=== PATIENT | female | born 1960 | race African-American/Black ===

== ENCOUNTER → 2016-08-03 | Outpatient (CLI) | payer MEDICARE, OTHER ==
[~2016-08-03] MED LIST: ACETAMINOPHEN PO; AMITRIPTYLINE H25 MG PO; AMITRYPTYLINE PO; AMLODIPINE BESY10 MG PO; ASPIRIN81 M1 PO; ASPIRIN81 M2 PO; BACTRIM 400-801 TA1 PO; CALCIUM + D 6001 TA1 PO; CALCIUM 600 +1 EA10 PO; COLACE PO; COLACE50 MG PO; DIFLUCAN PO; GARLIC1 CAP PO; GARLIC1 TAB PO; LASIX PO; LEVAQUIN PO; LIPITOR20 MG PO; LISINOPRIL PO; LOPRESSOR PO; METOPROLOL TAR100 MG PO; MINOXIDIL PO; MINOXIDIL2.5 MG PO; MULTI VITAMIN1 EACH PO; MYFORTIC180 MG; MYFORTIC180 MG PO; NILSTAT PO; NORVASC PO; PATIENT'S PHARMACY; PRILOSEC20 M1 PO; PROCRIT SUBQ; PROGRAF1 MG PO; RENAGEL PO; RENAGEL403 MG PO; RENVELA800 MG PO; SOD BICARBONATE PO; TOPROL XL100 MG PO; VICODIN 5/1 TAB 5/50 PO; VITAMIN E400 UNI2 PO; ZEMPLAR PO; ZOCOR PO; ZOLOFT PO; ZOLOFT50 MG PO
--- NOTE | ~2016-08-03 | US135 ---
[facility] A Service of [facility] & [facility] RADIOLOGY TEXT RESULTS PATIENT: ALANNA CARRIZALES LOCATION: CNIV : 60 UNIT #: [id number] AGE: [address]: Delon Beltre MD SEX: F ORDER DR: [id number] [facility] [address] [place], [place] [address] [id number] O MR#: [id number] Acc #: [id number] NAME: ALANNA CARRIZALES : 1960 SEX: F STUDY DATE/TIME: 08/03/2016 9:59 UNIT: CNIV ROOM: STUDY DESCRIPTION: US U/L Ext Art Study Comp West Attending Physician: Delon Beltre M.D. Referring Physician: Delon Beltre M.D. Ordering Physician: Delon Beltre M.D. Primary Care Physician: Cecile Cardenas M.D. MEDICAL IMAGING REPORT This report is preliminary unless electronic signature is present EXAM LORENA with segmental pressure HISTORY Peripheral vascular disease. FINDINGS The right brachial artery pressure is 129, right upper thigh pressure is 200, lower thigh 141, calf 140. Right dorsalis pedis pressure 119 with ankle brachial index 0.92. The right posterior tibial pressure is 121 with ankle brachial index 0.94. The right digital pressure is 83 with toe index 0.64. The left brachial artery pressure could not be taken because of the presence of an arm graft. The upper thigh pressure could not be obtained due to the patient's pain. The left lower thigh pressure is 150, calf 128. Left dorsalis pedis pressure is 132, with an ankle brachial index 1.20. Left posterior pressure 125, with an ankle brachial index 0.97. Left toe pressure was not taken on the great toe because it is status post amputation. The waveforms of the right posterior tibial and dorsalis pedis waveforms are biphasic. The left posterior tibial and dorsalis pedis waveforms are also biphasic. Pulse volume recordings of the upper thigh pressures do appear somewhat irregular in comparison to the left. The rest of the PVRs demonstrate sharp upstroke and systolic peaks at the knee level, calf level, and ankles. IMPRESSION 1. The right LORENA 0.94, with no evidence of arterial insufficiency. [facility]. [facility] A Service of [facility] & [facility] RADIOLOGY TEXT RESULTS PATIENT: ALANNA CARRIZALES LOCATION: CNIV : 60 UNIT #: [id number] AGE: [address]: Delon Beltre MD SEX: F ORDER DR: 2. The left LORENA 1.02, with no evidence of arterial insufficiency. 1. Dictated by... Matthew Nunez M.D. THIS IS AN ELECTRONICALLY VERIFIED REPORT Matthew Nunez M.D. at 08/04/2016 8:13 AM Sallie TD: 08/03/2016 12:17 JOB #: [id number] MEDICAL IMAGING REPORT Page 1 of 1 COPY
--- NOTE | ~2016-08-03 | US83 ---
[facility] A Service of [facility] & [facility] RADIOLOGY TEXT RESULTS PATIENT: ALANNA CARRIZALES LOCATION: CNIV : 60 UNIT #: [id number] AGE: [address]: Delon Beltre MD SEX: F ORDER DR: [id number] [facility] [address] [place], [place] [address] [id number] O MR#: [id number] Acc #: [id number] NAME: ALANNA CARRIZALES : 1960 SEX: F STUDY DATE/TIME: 08/03/2016 11:54 UNIT: CNIV ROOM: STUDY DESCRIPTION: US LE [employer] Attending Physician: Delon Beltre M.D. Referring Physician: Delon Beltre M.D. Ordering Physician: Delon Beltre M.D. Primary Care Physician: Cecile Cardenas M.D. MEDICAL IMAGING REPORT This report is preliminary unless electronic signature is present EXAM Left lower extremity arterial duplex, 08/03/2016. HISTORY Peripheral vascular disease. FINDINGS The left common femoral artery has triphasic flow with velocity of 79 cm/sec. The left superficial femoral artery proximal has triphasic flow with a velocity of 114 cm/sec, profunda artery triphasic flow with a velocity of 46 cm/sec. The left superficial femoral artery at the mid portion has velocity of 92 cm/sec, with biphasic flow, in its distal aspect 39 cm/sec, with monophasic flow. The left popliteal artery has biphasic flow with velocity of 68 cm/sec at its distal aspect. Tibioperoneal trunk has biphasic flow with velocity of 71 cm/sec, posterior tibial artery biphasic flow with 38 cm/sec. IMPRESSION There appears to be patent flow seen throughout the right common femoral artery, profunda, and superficial femoral artery, with popliteal artery and tibioperoneal trunk runoff. There is no evidence of high-grade stenosis by duplex criteria. Dictated by... Matthew Nunez M.D. THIS IS AN ELECTRONICALLY VERIFIED REPORT Matthew Nunez M.D. at 08/04/2016 8:20 AM DEMETRIUS/justine MCKEON: 08/03/2016 12:17 [facility] A Service of [facility] & [facility] RADIOLOGY TEXT RESULTS PATIENT: ALANNA CARRIZALES LOCATION: CNIV : 60 UNIT #: [id number] AGE: [address]: Delon Beltre MD SEX: F ORDER DR: TD: 08/03/2016 13:22 JOB #: [id number] MEDICAL IMAGING REPORT Page 1 of 1 COPY
== END | disposition home or self-care (01) ==
LOC: CNIV 09:46
DX: I73.9 Peripheral vascular disease, unspecified (principal)
CPT/HCPCS: 93923; 93926

== ENCOUNTER 2016-09-08 08:49 | Emergency (ER) | payer MEDICARE, OTHER | END 2016-09-08 09:39 | disposition home or self-care (01) | LOC: CFTX 08:49 → CED 08:49 → CFTX 09:13 | DX: L01.00 Impetigo, unspecified (principal); I10 Essential (primary) hypertension; Z90.710 Acquired absence of both cervix and uterus; Z89.422 Acquired absence of other left toe(s); Z94.0 Kidney transplant status; Z79.899 Other long term (current) drug therapy; Z88.1 Allergy status to other antibiotic agents | CPT/HCPCS: 99282 ==

== ENCOUNTER → 2016-09-09 | Outpatient (CLI) | payer MEDICARE, OTHER ==
--- NOTE | ~2016-09-09 | MY11 ---
[facility] A Service of [facility] RADIOLOGY TEXT RESULTS PATIENT: ALANNA CARRIZALES LOCATION: [facility] : 60 UNIT #: [id number] AGE: [address]: UDAY RASCON MD SEX: F ORDER DR: [id number] [place] [id number] [facility] [place], [place] [address] [id number] O MR#: [id number] Acc #: [id number] NAME: ALANNA CARRIZALES : 1960 SEX: F STUDY DATE/TIME: 09/09/2016 7:52 UNIT: [facility] ROOM: STUDY DESCRIPTION: MY Mammogram Screening Dig West Attending Physician: Uday Rascon M.D. Referring Physician: Uday Rascon M.D. Ordering Physician: Uday Rascon M.D. Primary Care Physician: Uday Rascon M.D. MEDICAL IMAGING REPORT This report is preliminary unless electronic signature is present EXAM Digital screening mammogram 09/09/2016 HISTORY 56-year-old woman. Positive family history. Annual screen. COMPARISON Mammograms date to 06/04/2005 with most recent screening comparison 09/09/2015. FINDINGS Digital imaging of each breast was completed utilizing screening protocol. Review includes FDA-approved CAD device. Breast parenchyma is heterogeneously dense with mild parenchymal dominance noted in the right breast. Numerous calcifications are present in each breast, dominant in the left breast. This includes a cluster of somewhat coarse calcifications stable in the upper anterior third left breast. I see no suspicious mass characteristics. There are no interval-occurring suspicious microcalcifications and no architectural deformity. IMPRESSION Stable benign mammogram. Annual screening recommended. Patient's over the age of 40 are entered into a reminder system with target due date for the next mammogram. BIRADS: 2 Benign findings Dictated by... Diego Colby M.D. THIS IS AN ELECTRONICALLY VERIFIED REPORT [facility] A Service of [facility] RADIOLOGY TEXT RESULTS PATIENT: ALANNA CARRIZALES LOCATION: [facility] : 60 UNIT #: [id number] AGE: [address]: UDAY RASCON MD SEX: F ORDER DR: Diego Colby M.D. at 09/09/2016 9:32 AM LIZTET/aliyah TD: 09/09/2016 09:22 JOB #: [id number] MEDICAL IMAGING REPORT Page 1 of 1 COPY
== END | disposition home or self-care (01) ==
LOC: CWCC 07:36
DX: Z12.31 Encounter for screening mammogram for malignant neoplasm of breast (principal); Z80.3 Family history of malignant neoplasm of breast
CPT/HCPCS: G0202

== ENCOUNTER 2016-09-24 11:32 | Emergency (ER) | payer MEDICARE, OTHER ==
--- NOTE | ~2016-09-24 | CT71 ---
[facility] A Service of [facility] RADIOLOGY TEXT RESULTS PATIENT: ALANNA CARRIZALES LOCATION: [facility] : 60 UNIT #: [id number] AGE: [address]: Ayanna Talbert MD SEX: F ORDER DR: [id number] [facility] [address] [place], [place] [address] [id number] E MR#: [id number] Acc #: [id number] NAME: ALANNA CARRIZALES : 1960 SEX: F STUDY DATE/TIME: 09/24/2016 13:24 UNIT: [facility] ROOM: STUDY DESCRIPTION: CT Head Wo Contrast Attending Physician: Ayanna Talbert M.D. Ordering Physician: Ayanna Talbert M.D. Primary Care Physician: Cecile Cardenas M.D. MEDICAL IMAGING REPORT This report is preliminary unless electronic signature is present EXAM CT of the head without contrast INDICATION Headache for 1 week. This patient has a history of kidney transplant. TECHNIQUE Axial CT images were obtained from the vertex of the skull through the skull base, and intravenous contrast material was administered. FINDINGS No acute intracranial hemorrhage is identified. The patient is noted to have areas of encephalomalacia within the left parietal lobe and right frontal lobe with associated dystrophic calcifications. Additional calcification is seen within the left basal ganglia. There is no midline shift or mass effect. Ventricles are normal in size. Visualized paranasal sinuses and mastoid air cells appear clear. IMPRESSION 1. No acute intracranial process identified. Specifically, there is no evidence of acute hemorrhage, mass lesion, or acute infarct. 2. Areas of encephalomalacia within the right frontal lobe and left parietal lobe with associated dystrophic calcification. Dictated by... Patricia Barger M.D. THIS IS AN ELECTRONICALLY VERIFIED REPORT Patricia Barger M.D. at 09/24/2016 4:22 PM AFF/js TD: 09/24/2016 15:35 [facility] A Service of [facility] RADIOLOGY TEXT RESULTS PATIENT: ALANNA CARRIZALES [facility] [id number] : 60 UNIT #: [id number] AGE: [address]: Ayanna Talbert MD SEX: F ORDER DR: JOB #: [id number] MEDICAL IMAGING REPORT Page 1 of 1 COPY
[2016-09-24 12:24] LABS: URINE SOURCE CLEAN CATCH
[2016-09-24 12:38] LABS: URINE APPEARANCE CLEAR; URINE BILIRUBIN NEG (NEG); URINE BLOOD TRACE (NEG); URINE COLOR YELLOW; URINE GLUCOSE NEG (NEG); URINE KETONE NEG (NEG); URINE LEUKOCYTE ESTERASE 1+ (NEG); URINE NITRATE NEG (NEG); URINE PROTEIN NEG (NEG); URINE SPECIFIC GRAVITY 1.016 (1.003-1.035)
[2016-09-24 12:42] LABS: URINE BACTERIA AUWI NEG (NEGATIVE); URINE SQUAMOUS EPITHELIAL CELL OCC /[HPF]
[2016-09-24 12:51] LABS: CULTURE INDICATED? NO
[2016-09-24 14:53] LABS: BASOPHIL# 0.1 X10e3 (0-0.3); BASOPHIL% 0.7 % (0-2.5); EOSINOPHIL% 0.2 % (0.0-7.0); HEMATOCRIT 40.5 % (35.0-45.0); HEMOGLOBIN 13.2 gm/dL (12.0-16.0); LYMPHOCYTE# 1.8 X10e3 (1.0-3.5); MEAN CELL VOLUME 88.7 FL (83-96); MEAN CORPUSCULAR HEMOGLOBIN 28.8 PG (28-34); MEAN CORPUSCULAR HGB CONC 32.5 g/dL (30-36); MEAN PLATELET VOLUME 10.2 FL (6.5-11.5); MONOCYTE# 0.8 X10e3 (0-1.0); MONOCYTE% 9.4 % (3.0-12.0); NEUTROPHIL# 6.2 X10e3 (1.5-7.1); NEUTROPHIL% 69.7 % (40-75); PLATELET COUNT 174 X10e3 (140-420); RED BLOOD COUNT 4.56 X10e (3.90-5.30); RED CELL DISTRIBUTION WIDTH 13.8 % (11.0-15.5); WHITE BLOOD COUNT 8.9 X10e3 (4.0-10.5)
[2016-09-24 14:54] LABS: DIFF IND NO
[2016-09-24 15:06] LABS: ALBUMIN SERUM 4.3 g/dL (3.5-5.0); BILIRUBIN, DIRECT 0.1 mg/dL (0.0-0.2); BILIRUBIN,INDIRECT 0.5 mg/dL (0.0-0.9); BILIRUBIN,TOTAL 0.6 mg/dL (0.2-2.0); BUN/CREATININE RATIO 15.55; CALCIUM SERUM 9.1 mg/dL (8.4-10.2); CREATININE SERUM 0.9 mg/dL (0.6-1.4); GLOM FILT RATE Estimated 82.9 mL/min (>60); POTASSIUM 4.5 mmol/L (3.5-5.1); PROTEIN TOTAL SERUM 7.9 g/dL (6.0-8.3)
== END 2016-09-24 17:25 | disposition home or self-care (01) ==
LOC: CED 11:32
DX: R11.2 Nausea with vomiting, unspecified (principal); R51 Headache; R19.7 Diarrhea, unspecified; I10 Essential (primary) hypertension; I25.10 Atherosclerotic heart disease of native coronary artery without angina pectoris; Z86.718 Personal history of other venous thrombosis and embolism; Z90.710 Acquired absence of both cervix and uterus; Z88.1 Allergy status to other antibiotic agents; Z88.8 Allergy status to other drugs, medicaments and biological substances
CPT/HCPCS: 36415; 70450; 80048; 80076; 81003; 83690; 85025; 96361; 96374; 96375; 99284; J1100; J1200; J1885; J2765

== ENCOUNTER 2016-10-29 12:04 | Emergency (ER) | payer MEDICARE, OTHER ==
[2016-10-29 13:11] LABS: BASOPHIL% 0.5 % (0-2.5); EOSINOPHIL% 0.2 % (0.0-7.0); HEMATOCRIT 38.3 % (35.0-45.0); HEMOGLOBIN 12.6 gm/dL (12.0-16.0); LYMPHOCYTE# 0.7 X10e3 (1.0-3.5); LYMPHOCYTE% 8.6 % (17.0-45.0); MEAN CELL VOLUME 87.9 FL (83-96); MEAN PLATELET VOLUME 10.2 FL (6.5-11.5); MONOCYTE# 0.5 X10e3 (0-1.0); MONOCYTE% 6.7 % (3.0-12.0); NEUTROPHIL# 6.6 X10e3 (1.5-7.1); PLATELET COUNT 142 X10e3 (140-420); RED BLOOD COUNT 4.35 X10e (3.90-5.30); RED CELL DISTRIBUTION WIDTH 13.8 % (11.0-15.5); WHITE BLOOD COUNT 7.8 X10e3 (4.0-10.5)
[2016-10-29 13:12] LABS: DIFF IND NO
[2016-10-29 13:24] LABS: PARTIAL THROMBOPLASTIN TIME 28.2 SECONDS (23.5-31.3)
[2016-10-29 13:36] LABS: URINE SOURCE CLEAN CATCH
[2016-10-29 13:40] LABS: ALBUMIN SERUM 4.1 g/dL (3.5-5.0); BILIRUBIN, DIRECT 0.1 mg/dL (0.0-0.2); BILIRUBIN,INDIRECT 0.5 mg/dL (0.0-0.9); BILIRUBIN,TOTAL 0.6 mg/dL (0.2-2.0); CALCIUM SERUM 8.9 mg/dL (8.4-10.2); POTASSIUM 4.5 mmol/L (3.5-5.1); PROTEIN TOTAL SERUM 7.3 g/dL (6.0-8.3)
[2016-10-29 13:43] LABS: URINE APPEARANCE CLEAR; URINE BILIRUBIN NEG (NEG); URINE BLOOD NEG (NEG); URINE COLOR YELLOW; URINE GLUCOSE NEG (NEG); URINE KETONE NEG (NEG); URINE LEUKOCYTE ESTERASE TRACE (NEG); URINE NITRATE NEG (NEG); URINE PH 5.5 (5-8); URINE PROTEIN TRACE (NEG); URINE SPECIFIC GRAVITY 1.012 (1.003-1.035); URINE UROBILINOGEN 0.2 MG/DL (NEG)
[2016-10-29 13:46] LABS: URINE BACTERIA AUWI NEG (NEGATIVE); URINE SQUAMOUS EPITHELIAL CELL FEW /[HPF]; UWBCS1 AUWI 0-2 (0-5)
[2016-10-29 13:49] LABS: CULTURE INDICATED? NO
== END 2016-10-29 16:23 | disposition home or self-care (01) ==
LOC: CED 12:04
PROVIDERS: Emergency Medicine
DX: K62.5 Hemorrhage of anus and rectum (principal); I10 Essential (primary) hypertension; Z88.1 Allergy status to other antibiotic agents
CPT/HCPCS: 36415; 80048; 80076; 81003; 85025; 85610; 85730; 86850; 86900; 86901; 99283

== ENCOUNTER → 2016-10-30 | Outpatient (CLI) | payer MEDICARE, OTHER ==
[2016-10-30 11:56] LABS: HEMATOCRIT 38.1 % (35.0-45.0); HEMOGLOBIN 12.3 gm/dL (12.0-16.0); MEAN CELL VOLUME 88.8 FL (83-96); MEAN CORPUSCULAR HEMOGLOBIN 28.7 PG (28-34); MEAN CORPUSCULAR HGB CONC 32.3 g/dL (30-36); RED BLOOD COUNT 4.29 X10e (3.90-5.30); RED CELL DISTRIBUTION WIDTH 13.8 % (11.0-15.5); WHITE BLOOD COUNT 4.5 X10e3 (4.0-10.5)
== END | disposition home or self-care (01) ==
LOC: CLAB 10:57
PROVIDERS: Emergency Medicine
DX: K62.5 Hemorrhage of anus and rectum (principal)
CPT/HCPCS: 36415; 85027

== ENCOUNTER 2016-12-17 08:55 | Emergency (ER) | payer MEDICARE, OTHER ==
[~2016-12-17] VITALS: Ht 172.7 cm; Wt 90.7 kg
--- NOTE | ~2016-12-17 | CT71 ---
[facility] A Service of [facility] & [facility] RADIOLOGY TEXT RESULTS PATIENT: ALANNA CARRIZALES LOCATION: [facility] : 60 UNIT #: [id number] AGE: [address]: Rodriguez Thompson DO SEX: F ORDER DR: [id number] [facility] [address] [place], [place] [address] [id number] E MR#: [id number] Acc #: [id number] NAME: ALANNA CARRIZALES : 1960 SEX: F STUDY DATE/TIME: 12/17/2016 11:23 UNIT: [facility] ROOM: STUDY DESCRIPTION: CT Head Wo Contrast Attending Physician: Rodriguez Thompson D.O. Ordering Physician: Rodriguez Thompson D.O. Primary Care Physician: Cecile Cardenas M.D. MEDICAL IMAGING REPORT This report is preliminary unless electronic signature is present EXAM CT of the head, 12/17/2016. HISTORY Pain. Headache in frontal lobe. Diffuse abdominal pain, headache, abdomen pain for [address] head performed skull base through vertex without intravenous contrast. This CT exam was performed with one or more of the following radiation dose reduction techniques: automatic exposure control, adjustment of mA and/or kV according to patient size, and iterative reconstruction. COMPARISON 09/24/2016. FINDINGS Multiple images degraded by streak artifact. The brainstem is unremarkable. Cerebellum and cerebral hemispheres show normal guzman matter - white matter differentiation. No hemorrhage. There is no evidence of acute cortical ischemia. The midline structures are nondisplaced. There is a small chronic lacunar infarct in the superior body of the right caudate nucleus. There is a small dystrophic calcification, stable, in the left caudate nucleus head. There are areas of stable encephalomalacia in the right frontal lobe, left temporal parietal junction region anteriorly, and left parietal lobe posteriorly and superiorly. These are unchanged from prior examination and could reflect sequelae of prior vascular injury with dystrophic calcification or perhaps sequelae of prior trauma. Outside of these areas, the ventricles, cisterns and sulci are normal in size and contour. There is no intra or extraaxial mass effect. There are cavernous carotid arterial calcifications. Intraorbital soft tissues unremarkable. Visualized paranasal sinuses and mastoid air cells are clear. No fracture. [facility]. [facility] A Service of [facility] & [facility] RADIOLOGY TEXT RESULTS PATIENT: ALAN[facility] CARRIZALES [id number] 60 UNIT #: [id number] AGE: [address]: Rodriguez Thompson DO SEX: F ORDER DR: IMPRESSION 1. No acute abnormalities seen in the brain. No change in appearance compared to August 2016. If patient has ongoing neurologic symptoms, consider follow up imaging. 2. Areas of encephalomalacic change with associated dystrophic calcification in the right frontal lobe, left temporal parietal junction region and left parietal lobe are unchanged from August 2016. These may reflect sequelae of remote vascular insult and dystrophic calcification or perhaps sequelae of remote trauma with associated dystrophic calcification. 3. Tiny of lacunar infarct of superior right caudate nucleus. Unchanged. Punctate chronic calcification left caudate nucleus head unchanged. 4. Cavernous carotid arterial calcifications. Dictated by... Nilay Cabral M.D. THIS IS AN ELECTRONICALLY VERIFIED REPORT Nilay Cabral M.D. at 12/19/2016 10:01 PM EVELIA/dewey TD: 12/17/2016 16:40 JOB #: [id number] MEDICAL IMAGING REPORT Page 1 of 1 COPY
--- NOTE | ~2016-12-17 | CR72 ---
[facility] A Service of [facility] & [facility] RADIOLOGY TEXT RESULTS PATIENT: ALANNA CARRIZALES LOCATION: [facility] : 60 UNIT #: [id number] AGE: [address]: Rodriguez Thompson DO SEX: F ORDER DR: [id number] [facility] [address] [place], [place] [address] [id number] E MR#: [id number] Acc #: [id number] NAME: ALANNA CARRIZALES : 1960 SEX: F STUDY DATE/TIME: 12/17/2016 14:21 UNIT: [facility] ROOM: STUDY DESCRIPTION: CR Chest Single View Portable Attending Physician: Rodriguez Thompson D.O. Ordering Physician: Rodriguez Thompson D.O. Primary Care Physician: Cecile Cardenas M.D. MEDICAL IMAGING REPORT This report is preliminary unless electronic signature is present EXAM Portable chest HISTORY Headache and fever for the past 2 days. COMPARISON 06/12/2015 TECHNIQUE Single AP view of the chest was obtained. FINDINGS A single AP portable view of the chest shows both lungs to be clear. The heart is normal in size. The mediastinal contour is normal. No significant bone abnormalities are seen. IMPRESSION Normal portable chest. Dictated by... Alfred Chacon M.D. THIS IS AN ELECTRONICALLY VERIFIED REPORT Alfred Chacon M.D. at 12/22/2016 2:13 PM RLF/med TD: 12/17/2016 22:28 JOB #: [id number] MEDICAL IMAGING REPORT Page 1 of 1 COPY
--- NOTE | ~2016-12-17 | CT4 ---
[facility] A Service of [facility] & [facility] RADIOLOGY TEXT RESULTS PATIENT: ALANNA CARRIZALES LOCATION: [facility] : 60 UNIT #: [id number] AGE: [address]: Rodriguez Thompson DO SEX: F ORDER DR: [id number] [facility] [address] [place], [place] [address] [id number] E MR#: [id number] Acc #: [id number] NAME: ALANNA CARRIZALES : 1960 SEX: F STUDY DATE/TIME: 12/17/2016 11:29 UNIT: [facility] ROOM: STUDY DESCRIPTION: CT Abd and Pelv Wo Cont Attending Physician: Rodriguez Thompson D.O. Ordering Physician: Rodriguez Thompson D.O. Primary Care Physician: Cecile Cardenas M.D. MEDICAL IMAGING REPORT This report is preliminary unless electronic signature is present EXAM CT abdomen and pelvis, 12/17/2016. HISTORY Pain. Headache, abdomen pain 3 days. Diffuse abdominal pain, headache and frontal lobe. TECHNIQUE CT abdomen and pelvis performed without administration of oral or intravenous contrast. This CT exam was performed with one or more of the following radiation dose reduction techniques: automatic exposure control, adjustment of mA and/or kV according to patient size, and iterative reconstruction. COMPARISON 10/11/2014. FINDINGS There are some linear scarring or atelectasis at the lung bases. The inferior heart and pericardium unremarkable. The liver, gallbladder, spleen, pancreas unremarkable. Adrenal glands unremarkable. I believe the patient retains markedly atrophic redding left kidney. There is also marked atrophy of the redding right kidney, though less pronounced than on the left. In the upper pole of the redding right kidney, there is an approximately at 1.6-1.9 cm cyst. There are nonobstructing right renal calculi. No redding right renal inflammatory change or hydronephrosis. The patient has a right iliac fossa renal transplant. The renal transplant shows mild pyelocaliectasis without ureteral dilatation. This appears slightly more pronounced than on the prior examination. No obstructing process is seen. There is inflammatory haziness and stranding in the perinephric fat and in the renal pelvic fat. Findings may reflect infectious or inflammatory process involving the renal transplant. Correlate with urinalysis for any indications of urinary tract infection. [facility]. [facility] A Service of [facility] & [facility] RADIOLOGY TEXT RESULTS PATIENT: ALANNA CARRIZALES LOCATION: [facility] : 60 UNIT #: [id number] AGE: [address]: Rodriguez Thompson DO SEX: F ORDER DR: CT PELVIS: Linear density in the cutaneous and subcutaneous tissues of the left groin. New compared to prior examination. Configuration suggests interval operative intervention. Please correlate clinically. Small, not pathologically enlarged bilateral inguinal lymph nodes. Urinary bladder unremarkable. There is no free fluid in the pelvis. No pelvic adenopathy. There is a 11 mm short-axis aortocaval lymph node at level of the transplant renal upper pole. Slightly more pronounced than on prior examination and probably reactive in nature. The distal esophagus, stomach, small bowel, appendix, colon show no acute abnormality. There is uncomplicated colonic diverticulosis. Extensive atherosclerotic arterial calcifications. Linear scarring or atelectasis at the bilateral lung bases. Postoperative changes anterior pelvic wall. IMPRESSION 1. Patient's right iliac fossa renal transplant shows mild pyelocaliectasis without ureteral dilatation and with no obstructing process seen. There is mild transplant perinephric fat stranding and haziness, and haziness in the transplant renal pelvic fat. This is new. The appearance suggests infectious or inflammatory process involving the right renal transplant. Correlate with clinical presentation and urinalysis for any indication of urinary tract infections/pyelonephritis. There is no perinephric drainable fluid collection. 2. Stable appearance of atrophic bilateral redding kidneys markedly more pronounced on the left than right. 3. The gallbladder, pancreas, appendix normal. 4. Uncomplicated colonic diverticulosis. 5. Extensive atherosclerotic arterial calcifications. 6. In the interval from October 2014, there has developed a somewhat linear area of cutaneous thickening and subcutaneous stranding in the left groin region. The appearance of which favors interval intervention. Correlate with history. There is no subcutaneous air or fluid collection. 6. See remainder of findings in body of report. Dictated by... Nilay Cabral M.D. THIS IS AN ELECTRONICALLY VERIFIED REPORT Nilay Cabral M.D. at 12/19/2016 10:01 PM Ursula TD: 12/17/2016 17:22 JOB #: [id number] [facility]. [facility] A Service of [facility] & [facility] RADIOLOGY TEXT RESULTS PATIENT: ALANNA CARRIZALES LOCATION: [facility] #: [id number] : 60 UNIT #: [id number] AGE: [address]: Rodriguez Thompson DO SEX: F ORDER DR: MEDICAL IMAGING REPORT Page 1 of 1 COPY
[2016-12-17 10:13] LABS: BASOPHIL# 0.1 X10e3 (0-0.3); BASOPHIL% 0.4 % (0-2.5); EOSINOPHIL% 0.1 % (0.0-7.0); HEMATOCRIT 37.4 % (35.0-45.0); HEMOGLOBIN 12.4 gm/dL (12.0-16.0); LYMPHOCYTE# 1.3 X10e3 (1.0-3.5); LYMPHOCYTE% 9.8 % (17.0-45.0); MEAN CELL VOLUME 87.3 FL (83-96); MEAN CORPUSCULAR HEMOGLOBIN 28.8 PG (28-34); MEAN CORPUSCULAR HGB CONC 33.1 g/dL (30-36); MEAN PLATELET VOLUME 10.1 FL (6.5-11.5); MONOCYTE# 1.2 X10e3 (0-1.0); MONOCYTE% 8.9 % (3.0-12.0); NEUTROPHIL# 10.5 X10e3 (1.5-7.1); NEUTROPHIL% 80.8 % (40-75); PLATELET COUNT 170 X10e3 (140-420); RED BLOOD COUNT 4.28 X10e (3.90-5.30); RED CELL DISTRIBUTION WIDTH 14.1 % (11.0-15.5)
[2016-12-17 10:17] LABS: DIFF IND NO
[2016-12-17 10:25] LABS: PARTIAL THROMBOPLASTIN TIME 30.6 SECONDS (23.5-31.3); PROTHROMBIN TIME (PATIENT) 11.1 SECONDS (10.0-11.7)
[2016-12-17 10:40] LABS: ALBUMIN SERUM 4.3 g/dL (3.5-5.0); BILIRUBIN, DIRECT 0.1 mg/dL (0.0-0.2); BILIRUBIN,INDIRECT 0.8 mg/dL (0.0-0.9); BILIRUBIN,TOTAL 0.9 mg/dL (0.2-2.0); CREATININE SERUM 1.2 mg/dL (0.6-1.4); GLOM FILT RATE Estimated 58.5 mL/min (>60); PROTEIN TOTAL SERUM 7.8 g/dL (6.0-8.3)
[2016-12-17 13:10] LABS: URINE SOURCE CLEAN CATCH
[2016-12-17 13:58] LABS: URINE APPEARANCE CLEAR; URINE BILIRUBIN NEG (NEG); URINE BLOOD TRACE (NEG); URINE COLOR YELLOW; URINE GLUCOSE NEG (NEG); URINE KETONE NEG (NEG); URINE LEUKOCYTE ESTERASE 1+ (NEG); URINE NITRATE POS (NEG); URINE PROTEIN 1+ (NEG); URINE SPECIFIC GRAVITY 1.016 (1.003-1.035); URINE UROBILINOGEN 0.2 MG/DL (NEG)
[2016-12-17 14:02] LABS: CULTURE INDICATED? YES; URINE BACTERIA AUWI 1+ (NEGATIVE); URINE SQUAMOUS EPITHELIAL CELL OCC /[HPF]
== END 2016-12-17 17:58 ==
LOC: CED 08:55
PROVIDERS: Emergency Medicine
DX: N10 Acute pyelonephritis (principal); Z94.0 Kidney transplant status; I10 Essential (primary) hypertension; Z88.1 Allergy status to other antibiotic agents
CPT/HCPCS: 36415; 70450; 71010; 74176; 80048; 80076; 81003; 83605; 83690; 85025; 85610; 85730; 87040; 87086; 96361; 96365; 96375; 99285; J0696; J2270; J2405

== ENCOUNTER → 2016-12-17 | Outpatient (CLI) | payer MEDICARE, OTHER ==
--- NOTE | ~2016-12-17 | BD1 ---
[facility] A Service of [facility] & [facility] RADIOLOGY TEXT RESULTS PATIENT: ALANNA CARRIZALES LOCATION: [facility] : 60 UNIT #: [id number] AGE: [address]: UDAY RASCON MD SEX: F ORDER DR: [id number] [facility] [address] [place], [place] [address] [id number] O MR#: [id number] Acc #: [id number] NAME: ALANNA CARRIZALES : 1960 SEX: F STUDY DATE/TIME: 12/17/2016 8:45 UNIT: [facility] ROOM: STUDY DESCRIPTION: BD Dexa Bone Dens 1+ Site Attending Physician: Uday Rascon M.D. Ordering Physician: Uday Rascon M.D. Primary Care Physician: Uday Rascon M.D. MEDICAL IMAGING REPORT This report is preliminary unless electronic signature is present EXAM Bone density spine/hip; 12/17/2016. HISTORY Post-menopausal. TECHNIQUE Bone density scanning of the upper four lumbar vertebral segments and proximal left femur performed in this 200 pound 56-year-old -[place] postmenopausal female. COMPARISON 12/21/2014 FINDINGS L1-L4: Total bone mineral density 0.964 g/cm2 for T-score of 1.7 standard deviations below mean for reference population in normal young individuals and Z-score 0.4 standard deviations below the mean for age-matched population. Compared to 12/21/2014, there has been a 0.4% increase in bone mineral density in this region. Proximal left femur: Total bone mineral density 0.817 g/cm2 for T-score 1.4 standard deviations below the mean for reference population in normal young individuals and Z-score 0.8 standard deviations below the mean for age-matched population. Left femoral neck bone mineral density 0.778 g/cm2 for a T-score of 1.2 standard deviations below the mean for reference population in normal young individuals and Z-score 0.4 standard deviations below the mean for age-matched population. Using total bone mineral density as trending value in this region, there has been a 3.8% statistically significant decrease in bone mineral density in the proximal left femur compared to 12/21/2014. [facility]. [facility] A Service of [facility] & [facility] RADIOLOGY TEXT RESULTS PATIENT: ALANNA CARRIZALES LOCATION: [facility] : 60 UNIT #: [id number] AGE: [address]: UDAY RASCON MD SEX: F ORDER DR: IMPRESSION 1. Osteopenia in the upper four lumbar vertebral segments overall. Patient felt to be at increased risk for fracture. Treatment options may be considered. Continued surveillance is recommended. 2. Statistically significant decrease in proximal left femoral bone mineral density compared to 12/21/2014. See remainder of findings in body of report above. Dictated by... Nilay Cabral M.D. THIS IS AN ELECTRONICALLY VERIFIED REPORT Nilay Cabral M.D. at 12/19/2016 9:44 PM Ursula TD: 12/17/2016 15:43 JOB #: [id number] MEDICAL IMAGING REPORT Page 1 of 1 COPY
== END | disposition home or self-care (01) ==
LOC: CWCC 08:24
DX: Z13.820 Encounter for screening for osteoporosis (principal); Z78.0 Asymptomatic menopausal state; M85.88 Other specified disorders of bone density and structure, other site
CPT/HCPCS: 77080